=== PATIENT | male | born 1980 ===

== ENCOUNTER 2016-04-18 21:54 | Emergency (ER) | payer SELFPAY ==
[2016-04-18] MEDS ORDERED: TYLENOL ONE (22:13)
[2016-04-18] MEDS ORDERED: TYLENOL PO ONE (23:35)
[2016-04-19] MEDS ORDERED: NORCO 5/325 PO ONE (00:48)
[2016-04-19] MEDS ORDERED: CLEOCIN PO ONE (00:48)
[2016-04-19] MEDS ORDERED: BOOSTRIX IM ONE (00:48)
--- NOTE | 2016-04-19 01:15 | Emergency Department Report ---
ED Lower Extremity HPI - General Chief Complaint: Extremity Injury, Lower Stated Complaint: LEFT TOE INJURY Time Seen by Provider: 04/19/16 00:41 Source: patient Mode of arrival: Ambulatory Limitations: No Limitations - History of Present Illness Initial Comments: 36-year-old male presents with complaint of injury to left great toe. As per patient was loading back of truck, strapping down load with a metal sarath in nylon strap. Metal sarath slipped and hit his left great toe, patient states he was wearing sandals at the time. Patient has small laceration visible to lateral edge of left great toe. States that bearing weight is uncomfortable. Minor amount of bleeding from site. Remigio a few hours ago. Patient denies any other injuries, able to bear weight but with discomfort and left toe. In unaware of tetanus status. MD Complaint: other (left great toe small laceration adjacent to the nail bed lateral edge of toe) Onset/Timin -: hour(s) Injury: Toes: Left (laceration next to nail left great toe) Type of Injury: blunt Place: home Severity: moderate Severity scale (0 -10): 6 Improves With: immobilization Worsens With: weight bearing Context: direct blow Associated Symptoms: swelling, able to partially bear weight - Related Data Previous Rx's Medication Instructions Recorded Last Taken Type Clindamycin [Clindamycin CAP] 300 mg PO Q6H #28 capsule 04/19/16 Unknown Rx Naproxen [Naprosyn TAB] 500 mg PO BID PRN #25 tablet 04/19/16 Unknown Rx Allergies Allergy/AdvReac Type Severity Reaction Status Date / Time shellfish derived Allergy Swelling Verified 04/18/16 23:30 shrimp Allergy Swelling Uncoded 04/18/16 23:30 ED Review of Systems ROS: Stated complaint: LEFT TOE INJURY Other details as noted in HPI ED Past Medical Hx - Past Medical History Previous Medical History?: Yes Hx Hypertension: Yes - Surgical History Past Surgical History?: No - Social History Smoking Status: Never Smoker Substance Use Type: Alcohol - Medications Home Medications: Home Medications Medication Instructions Recorded Confirmed Last Taken Type Clindamycin [Clindamycin CAP] 300 mg PO Q6H #28 capsule 04/19/16 Unknown Rx Naproxen [Naprosyn TAB] 500 mg PO BID PRN #25 tablet 04/19/16 Unknown Rx ED Physical Exam - General Limitations: No Limitations General appearance: alert, in no apparent distress - Head Head exam: Present: atraumatic, normocephalic - Eye Eye exam: Present: normal appearance - ENT ENT exam: Present: mucous membranes moist - Neck Neck exam: Present: normal inspection - Respiratory Respiratory exam: Present: normal lung sounds bilaterally. Absent: respiratory distress - Cardiovascular Cardiovascular Exam: Present: regular rate, normal rhythm. Absent: systolic murmur, diastolic murmur, rubs, gallop - GI/Abdominal GI/Abdominal exam: Present: soft, normal bowel sounds - Rectal Rectal exam: Present: deferred - Extremities Exam Extremities exam: Present: normal inspection - Expanded Lower Extremity Exam Left Lower Leg exam: Present: normal inspection, full ROM Ankle exam: Present: normal inspection, full ROM Foot/Toe exam: Present: tenderness, swelling, laceration (mall 1 cm laceration to lateral aspect of distal left great toe adjacent to the nail, small amount small area of slightly avulsed nail. No amputations), nail avulsion (lateral edge of nail slightly avulsed) Neuro vascular tendon exam: Present: no vascular compromise, pulse deficit Gait: Positive: antalgic 1 - Small laceration adjacent to the nail - Back Exam Back exam: Present: normal inspection - Neurological Exam Neurological exam: Present: alert, oriented X3 - Psychiatric Psychiatric exam: Present: normal affect, normal mood - Skin Skin exam: Present: warm, dry, intact, normal color. Absent: rash ED Course Vital Signs 04/18/16 22:15 Temperature 98.3 F Pulse Rate 97 H Respiratory 20 Rate Blood Pressure 156/97 O2 Sat by Pulse 99 Oximetry ED Lower Extremity MDM - Medical Decision Making A/P: Toe laceration, possible distal toe fracture 1-tetanus update today 2-clindamycin 7 days 3-wound cleaned and irrigated, small avulsion/laceration to right side toenail. due to nature of laceration, unable to place any sutures on site, we'll wrap with Xeroform and give 24-48 hour wound check area nail shows no subungual hematoma, minimally avulsed. 4-toe wrapped in Xeroform then Larry wrap then giovanna taped. Patient placed in an orthopedic shoe. Follow-up with with podiatry as soon as possible, I emphasized the importance of this to the patient Critical care attestation.: If time is entered above; I have spent that time in minutes in the direct care of this critically ill patient, excluding procedure time. ED Disposition Clinical Impression: Laceration of toe of left foot Qualifiers: Encounter type: initial encounter Qualified Code(s): S91.119A - Laceration without foreign body of unspecified toe without damage to nail, initial encounter Nail avulsion of toe Qualifiers: Encounter type: initial encounter Qualified Code(s): S91.209A - Unspecified open wound of unspecified toe(s) with damage to nail, initial encounter Disposition: DISCHARGED TO HOME OR SELFCARE Is pt being admited?: No Does the pt Need Aspirin: No Condition: Stable Instructions: Laceration (ED), Toe Fracture (ED), Diphtheria/Acellular Pertussis/Tetanus Booster Vaccine (Tdap) (Injection) Additional Instructions: I advised patient to call for podiatry follow-up as soon as possible. 48-72 hour wound check for left toe in emergency department. Prescriptions: Clindamycin [Clindamycin CAP] 300 mg PO Q6H #28 capsule Naproxen [Naprosyn TAB] 500 mg PO BID PRN #25 tablet PRN Reason: Pain Referrals: PRIMARY CARE,MD [Primary Care Provider] - 3-5 Days FANY THORNTON DPM [Staff Physician] - 3-5 Days Forms: Work/School Release Form(ED), Accompanied Note Time of Disposition: 01:30
[2016-04-19 02:23] VITALS: BP 136/92
--- NOTE | 2016-04-19 09:25 | XRay Report ---
LEFT FOOT 2 VIEWS: 04/18/16 23:34:00 CLINICAL: Trauma. A pipe fell on a toe. FINDINGS: No fracture or dislocation. Normal soft tissues. No soft tissue air or foreign body. IMPRESSION: Normal.
== END 2016-04-19 02:23 | disposition home or self-care (01) ==
LOC: ED 21:54
DX: S91.212A Laceration without foreign body of left great toe with damage to nail, initial encounter (principal); I10 Essential (primary) hypertension; Z91.013 Allergy to seafood; W20.8XXA Other cause of strike by thrown, projected or falling object, initial encounter; Y93.89 Activity, other specified; Y99.8 Other external cause status; Y92.009 Unspecified place in unspecified non-institutional (private) residence as the place of occurrence of the external cause
CPT/HCPCS: 90471; 90715